=== PATIENT | male | born 1965 | race Caucasian/White ===

== ENCOUNTER 2019-11-09 14:38 | Observation (INO) | payer BC ==
[2019-11-09] MEDS ORDERED: SUBLIMAZE 100 MCG/2 ML IV ONE ×2 (14:58→16:03)
[2019-11-09] MEDS ORDERED: Zofran 4 MG/2 ML VIAL IV ONE (14:59)
[2019-11-09] MEDS ORDERED: Zofran 4 MG/2 ML VIAL ONE (15:00)
[2019-11-09] MEDS ORDERED: SUBLIMAZE 100 MCG/2 ML ONE ×2 (15:00→16:05)
--- NOTE | 2019-11-09 15:21 | ERPHSYRPT ---
- History of Present Illness Time Seen by Provider: 11/09/19 14:47 Source: patient Exam Limitations: no limitations Patient Subjective Stated Complaint: PT STATES HE FELL OFF WALK BOARD AT WORK LESS THAN 8 FEET HIGH, PAIN IN L FOOT, RIBS AND ARM, Triage Nursing Assessment: PT WHEELED BACK VIA WHEELCHAIR AND TX TO BED, A/O X3, STATES PAIN IN L FOOT, RIBS AND ARM, UNABLE TO PUT WEIGHT ON L FOOT, PEDAL PULSE STRONG, L ANKLE SWOLLEN Physician History: 54 yo wm fell off scaffolding 8ft in air before arrival injuring his L ankle/L thorax/L forearm. Pain is 9/10. He denies any symptoms before fall and also denies LOC/ARREGUIN/new C-T-L spine T. Occurred: just prior to arrival Reason for Fall: lost balance Injuries/Pain Location: upper extremity (L forearm), chest, lower extremity (L ankle) Loss of Consciousness: no loss of consciousness Quality: throbbing Severity of Pain-Max: severe Severity of Pain-Current: severe Modifying Factors: Improves With: movement Associated Symptoms (Fall): extremity injury, No abdominal pain, No back pain, No confusion, No chest pain, No dizziness, No headache, No lightheadedness, No muscle spasms, No nausea, No neck pain, No ringing in ears, No seizures, No s hortness of breath, No slurred speech, No trouble walking, No vomiting Allergies/Adverse Reactions: No Known Drug Allergies Allergy (Unverified 11/09/19 15:02) Home Medications: Atorvastatin Calcium [Lipitor] 10 mg PO DAILY 11/09/19 [History] Meloxicam 10 mg PO DAILY 11/09/19 [History] Immunizations Up to Date: Yes Travel Risk - International Travel Have you traveled outside of the country in past 3 weeks: No - Coronavirus Screening Are you exhibiting any of the following symptoms?: No Close contact with a COVID-19 positive Pt in past 14-21 Days: No - Review of Systems Constitutional: No Symptoms Eyes: No Symptoms Ears, Nose, & Throat: No Symptoms Respiratory: No Symptoms Cardiac: No Symptoms Abdominal/Gastrointestinal: No Symptoms Genitourinary Symptoms: No Symptoms Musculoskeletal: No Symptoms Skin: No Symptoms Neurological: No Symptoms Psychological: No Symptoms Endocrine: No Symptoms Hematologic/Lymphatic: No Symptoms Immunological/Allergic: No Symptoms - Past Medical History Pertinent Past Medical History: Yes Neurological History: No Pertinent History ENT History: No Pertinent History Cardiac History: No Pertinent History Endocrine Medical History: No Pertinent History Musculoskeletal History: Other GI Medical History: No Pertinent History History: No Pertinent History Psycho-Social History: No Pertinent History Male Reproductive Disorders: No Pertinent History Other Medical History: "BAD BACK" SPINAL STIMULATOR IN PLACE - Past Surgical History Past Surgical History: Yes Other Surgical History: CARPAL TUNNEL, SPINAL STIMULATOR - Social History Smoking Status: Never smoker Drug Use: none Patient Lives Alone: No - Nursing Vital Signs Nursing Vital Signs: Initial Vital Signs Pulse Rate 77 11/09/19 14:38 Respiratory Rate 18 11/09/19 14:38 Blood Pressure 126/89 11/09/19 14:38 O2 Sat by Pulse Oximetry 99 11/09/19 14:38 Pain Scale Pain Intensity 5 - [place] Coma Score Best Eye Response (Larisa): (4) open spontaneously Best Verbal Response (Larisa): (5) oriented Best Motor Response ([place]): (6) obeys commands Larisa Total: 15 - Physical Exam General Appearance: no apparent distress (In pain) Head Injury: no evidence of injury Eye Exam: PERRL/EOMI, eyes nml inspection ENT Exam: airway nml Neck Exam: supple, trachea midline, full range of motion, normal alignment, normal inspection (C-spine nttp) Respiratory/Chest Exam: normal breath sounds, No respiratory distress (L lateral thoracic ttp) Cardiovascular Exam: normal heart sounds, regular rate/rhythm, No murmur Gastrointestinal Exam: soft, normal bowel sounds, No tenderness Back Exam: normal inspection (No new T or L spine ttp) Extremity Exam: pain with movement (L ankle w marked edema and ttp/Good pedal pulse, distal senation, and capillary return) Peripheral Pulses: dorsalis-pedis (R): 2+, dorsalis-pedis (L): 2+ Neurologic Exam: alert, oriented x 3, cooperative, 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, normal mood/affect, sensation nml, No motor deficits, No sensory deficit Skin Exam: normal color, warm, dry SpO2 Interpretation: normal SpO2: 99 O2 Delivery: Room Air - Radiology Exams Forearm X-ray Interpretation: Discussed w/ radiologist (L forearm neg per Rad) Ankle X-ray Interpretation: Interpreted by me (L tri-malleolar fx) - CT Exams Chest CT Interpretation: Discussed w/radiologist (CT chest neg for acute injury) Ordered Tests: Active Orders 24 hr Category Date Time Status Bedrest ROUTINE Activity 11/09/19 18:14 Active Code Status Order ROUTINE Care 11/09/19 18:12 Active Cold Application STAT Care 11/09/19 19:01 Active IV Care Q6H Care 11/09/19 18:12 Active IV Insertion STAT Care 11/09/19 15:[address] in Observation ROUTINE Care 11/09/19 18:12 Active Vital Signs Q4H Care 11/09/19 18:12 Active NPO Diet 11/09/19 18:14 Active ANKLE (3 VIEWS) Stat Exams 11/09/19 15:56 Completed CHEST WITH CONTRAST [CT] Stat Exams 11/09/19 15:02 Completed FOREARM Stat Exams 11/09/19 15:57 Completed LOWER EXTREMITY WO CONTRAST [CT] Stat Exams 11/09/19 16:42 Completed CBC W DIFF AM.LAB Lab 11/10/19 04:00 Ordered CMP AM.LAB Lab 11/10/19 04:00 Ordered PROTIME WITH INR AM.LAB Lab 11/10/19 04:00 Ordered Transfer Order Routine Transfer 11/09/19 Ordered Medication Summary Generic Name Dose Route Start Last Admin Trade Name Freq PRN Reason Stop Dose Admin Hydromorphone HCl 1 mg 11/09/19 18:12 Dilaudid 2 Mg Injection IV 11/14/19 18:11 Q1H PRN PRN PAIN Sodium Chloride 1,000 mls @ 100 mls/hr 11/09/19 18:15 11/09/19 18:39 Sodium Chloride 0.9% 1000 Ml IV 12/09/19 18:14 100 mls/hr .Q10H TED Administration Ondansetron HCl 4 mg 11/09/19 18:12 Zofran 4 Mg/2 Ml Vial IV 12/09/19 18:11 Q6H PRN PRN NAUSEA/VOMITING Discontinued Medications Generic Name Dose Route Start Last Admin Trade Name Freq PRN Reason Stop Dose Admin Diphtheria/Tetanus/Acell Pertussis 0.5 ml 11/09/19 18:19 11/09/19 18:39 Adacel Vial IM 11/09/19 18:20 0.5 ml .ONCE ONE Administration Diphtheria/Tetanus/Acell Pertussis Confirm 11/09/19 18:34 Adacel Vial Administered 11/09/19 18:35 Dose 0.5 ml IM .STK-MED ONE Fentanyl Citrate 100 mcg 11/09/19 14:58 11/09/19 15:06 Sublimaze 100 Mcg/2 Ml IV 11/09/19 14:59 100 mcg STAT ONE Administration Fentanyl Citrate Confirm 11/09/19 15:00 Sublimaze 100 Mcg/2 Ml Administered 11/09/19 15:01 Dose 100 mcg .ROUTE .STK-MED ONE Fentanyl Citrate 100 mcg 11/09/19 16:03 11/09/19 16:13 Sublimaze 100 Mcg/2 Ml IV 11/09/19 16:04 100 mcg STAT ONE Administration Fentanyl Citrate Confirm 11/09/19 16:05 Sublimaze 100 Mcg/2 Ml Administered 11/09/19 16:06 Dose 100 mcg .ROUTE .STK-MED ONE Hydromorphone HCl 1 mg 11/09/19 16:41 11/09/19 16:43 Hydromorphone 1 Mg/Ml Ampule IV 11/09/19 16:42 1 mg STAT ONE Administration Hydromorphone HCl Confirm 11/09/19 16:42 Hydromorphone 1 Mg/Ml Ampule Administered 11/09/19 16:43 Dose 1 mg .ROUTE .STK-MED ONE Hydromorphone HCl Confirm 11/09/19 18:15 Hydromorphone 1 Mg/Ml Ampule Administered 11/09/19 18:16 Dose 1 mg .ROUTE .STK-MED ONE Hydromorphone HCl 1 mg 11/09/19 18:18 11/09/19 18:25 Hydromorphone 1 Mg/Ml Ampule IV 11/09/19 18:19 1 mg STAT ONE Administration Ondansetron HCl 4 mg 11/09/19 14:59 11/09/19 15:06 Zofran 4 Mg/2 Ml Vial IV 11/09/19 15:00 4 mg STAT ONE Administration Ondansetron HCl Confirm 11/09/19 15:00 Zofran 4 Mg/2 Ml Vial Administered 11/09/19 15:01 Dose 4 mg .ROUTE .STK-MED ONE - Progress Progress: improved Progress Note: 11/09/19 17:35 Pt given 100umg IV fentanylx2 w mod relief in pain. Given 1mg IV dilaudid w great relief in pain. Consulted Dr. Zacarias, who talked to pt and wanted CT of ankle. Pt had good pedal pulse throughout ER stay. 11/09/19 17:45 Dr. Zacarias to take pt to surgery. Pt states that pain is fine and refuses meds at this time. 11/09/19 18:21 Pt unable to go to surgery because instruments need to be sterilized. Pt admitted per Dr. Smith, and Dr. Zacarias to take to surgery in AM. Pt given 1mg IV dilaudid and LLE splinted per nursing w orthoglass. NVI. - Departure Departure Disposition: Observation Clinical Impression: Bimalleolar ankle fracture Condition: Stable Critical Care Time: No Referrals: ANAMARIA GARZA MD [Primary Care Provider] -
--- NOTE | 2019-11-09 16:21 | XRAY ---
Indication: Pain following fall. Comparison: None 2 view left forearm obtained. No bony, articular, or soft tissue abnormalities.
--- NOTE | 2019-11-09 16:23 | XRAY ---
Indication: Left-sided trauma following fall. Multiple contiguous axial images obtained through the chest using 80 cc Isovue 370 contrast. Comparison: None Lungs are inflated and clear. Heart is not enlarged. No pericardial effusion. Aorta is normal course and caliber. No pathologic mediastinal/hilar lymphadenopathy. Bony thorax intact with incidental epidural leads terminating T8 level. Limited upper abdomen is unremarkable. Impression: Negative CT chest with contrast exam.
--- NOTE | 2019-11-09 16:26 | XRAY ---
Indication: Pain following fall. Comparison: None 3 view left ankle demonstrates bimalleolar fracture with soft tissue swelling. Medial malleolus fracture is displaced and lateral malleolus fracture is nondisplaced and comminuted. Additional incomplete oblique fracture distal metadiaphysis tibia. Talus moderately subluxed laterally. No other bony, articular, or soft tissue abnormalities. Impression: Ankle fracture subluxation as detailed.
[2019-11-09] MEDS ORDERED: Hydromorphone 1 mg/ml Ampule IV ONE ×2 (16:41→18:18)
[2019-11-09] MEDS ORDERED: Hydromorphone 1 mg/ml Ampule ONE ×2 (16:42→18:15)
--- NOTE | 2019-11-09 17:10 | XRAY ---
Indication: Pain following fall. Multiple contiguous axial images obtained through the left ankle. Two-dimensional sagittal and coronal reformatted images obtained. Comparison: None There is bimalleolar fracture with medial malleolus fracture fragment mildly displaced and lateral malleolus fracture comminuted and with minimal valgus angulation. Lateral aspect of the distal tibia demonstrates minimally displaced vertical fracture extending to the tibial plafond and metadiaphysis. No other acute fracture or suspicious bony lesions. Talus is moderately subluxed laterally. Diffuse soft tissue swelling. Achilles tendon appears intact. Impression: Left ankle fracture with talus subluxation as detailed.
[2019-11-09] MEDS ORDERED: Zofran 4 MG/2 ML VIAL IV PRN (18:12)
[2019-11-09] MEDS ORDERED: Adacel Vial IM ONE ×2 (18:19→18:34)
[2019-11-09] MEDS: Sodium Chloride 0.9% 1000 ML 1,000 ML IV SCH (18:39)
[2019-11-09] MEDS: DILAUDID 2 MG INJECTION IV PRN (22:03)
[2019-11-10] MEDS: DILAUDID 2 MG INJECTION IV PRN ×2 (03:28→13:00)
[2019-11-10] MEDS: Sodium Chloride 0.9% 1000 ML 1,000 ML IV SCH (03:44)
[2019-11-10 04:58] LABS: Absolute Neutrophil Ct (ANC) 6.65 (1.4-6.9); BASOPHIL % 0.1 % (0.0-0.4); Basophil (Absolute #) 0.01 (0-0.4); Eosinophil % 1.3 % (0.00-5.0); Eosinophil (Absolute #) 0.14 (0-0.5); Hematocrit 37.7 % (42-50); Hemoglobin 12.4 gm/dl (12.5-18.0); Lymphocyte (Absolute #) 2.78 (1.0-4.6); Lymphocytes % 25.8 % (24.0-44.0); Mean Cell Volume 95.4 fl (78-100); Mean Corpuscular Hemoglobin 31.4 pg (26-32); Mean Corpuscular Hgb Concent. 32.9 g/dl (32-36); Mean Platelet Volume 10.1 fl (7.5-11.0); Monocyte (Absolute #) 1.21 (0.0-1.3); Monocytes % 11.2 % (0.0-12.0); Neutrophil % 61.6 % (36.0-66.0); Platelet Count 182 K/mm3 (150-450); Red Blood Count 3.95 M/mm3 (4.1-5.6); Red Cell Distribution Width 12.8 % (11.5-14.0); White Blood Count 10.8 K/mm3 (4.0-10.5)
[2019-11-10 05:25] LABS: ALBUMIN 3.7 g/dL (3.5-5.0); ALKALINE PHOSPHATASE 56 U/L (38-126); ANION GAP 8.7 MEQ/L (5-15); BLOOD UREA NITROGEN 19 mg/dL (9-20); CHLORIDE 100 mmol/L (98-107); Calcium 8.9 mg/dL (8.4-10.2); Carbon Dioxide 29 mmol/L (22-30); Creatinine 1 0.81 mg/dL (0.66-1.25); Glucose 108 mg/dL (74-106); Potassium 3.7 mmol/L (3.5-5.1); SGOT/AST 37 U/L (17-59); SGPT/ALT 44 U/L (0-50); SODIUM 135 mmol/L (137-145); Total Protein 6.2 g/dL (6.3-8.2)
[2019-11-10] MEDS ORDERED: SUBLIMAZE 250 MCG/5 ML ONE (06:28)
[2019-11-10] MEDS ORDERED: BRIDION 200MG/2ML IV ONE (06:28)
[2019-11-10] MEDS ORDERED: DIPRIVAN 200 MG/20 ML IV ONE (06:28)
[2019-11-10] MEDS ORDERED: Zofran 4 MG/2 ML VIAL ONE (06:28)
[2019-11-10] MEDS ORDERED: TORAdol 30 mg Injection ONE (06:28)
[2019-11-10] MEDS ORDERED: Xylocaine-Mpf 2% 5 Ml Vial ONE (06:28)
[2019-11-10] MEDS ORDERED: Decadron 4 MG INJ ONE ×2 (06:28→07:25)
[2019-11-10] MEDS ORDERED: Zemuron 100 MG/10 ML ONE (06:28)
[2019-11-10] MEDS ORDERED: XYLOCAINE 1% HCL 20 ML MDV ONE (07:12)
[2019-11-10] MEDS ORDERED: Sensorcaine 0.25% 10 ML ONE (07:12)
[2019-11-10] MEDS ORDERED: Lactated Ringers 1,000 ML IV ONE (07:13)
[2019-11-10] MEDS ORDERED: MARCAINE 0.5%-EPI 1:200,000 VL IJ ONE (07:25)
[2019-11-10] MEDS ORDERED: ROBINUL ONE (07:43)
[2019-11-10] MEDS ORDERED: Triple Antibiotic Ointment ONE (08:58)
--- NOTE | 2019-11-10 09:33 | XRAY ---
Indication: Left ankle external fixation. Intraoperative fluoroscopy was provided for 1.07 minute. 16 digital spot images submitted for interpretation demonstrates external orthopedic hardware fixating left ankle fracture. Correlate with intraoperative findings/report.
[2019-11-10 09:41] VITALS: PULSE 68
[2019-11-10] MEDS ORDERED: ENOXAPARIN SODIUM SQ ONE (10:53)
--- NOTE | 2019-11-10 12:44 | XRAY ---
1.07 minutes of fluoroscopy was used in surgery for a left ankle fixation.
[2019-11-10 13:36] VITALS: BP 123/78; O2SAT 98
--- NOTE | 2019-11-10 14:00 | CONS ---
DATE: 11/09/2019 1630 HISTORY OF PRESENT ILLNESS: The patient was seen in the emergency room. 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 He experienced immediate pain to his left foot, his ribs and his arm. He rates his pain as 9 out of 10. He denies any symptoms before his fall. He denied loss of consciousness. He states that this occurred at approximately 1330 hours. He denies any other trauma than other what was stated. HOME MEDICATIONS: He is on atorvastatin, calcium 10 mg p.o. daily, meloxicam 10 mg p.o. daily. ALLERGIES: NKDA. NO KNOWN ALLERGIES. REVIEW OF SYSTEMS: CONSTITUTIONAL: No symptoms. EYES: No symptoms. ENT: No symptoms. RESPIRATORY: No symptoms. CARDIAC: No symptoms. ABDOMINAL/GI: No symptoms. : No symptoms. MUSCULOSKELETAL: Symptoms - Pain and tenderness to the left ankle with palpation. SKIN: Skin is taught and shiny indicative of inflammation. NEUROLOGICAL: No symptoms. PSYCHOLOGICAL: No symptoms. ENDOCRINE: No symptoms. HEMATOLOGICAL/LYMPH: No symptoms. IMMUNOLOGICAL/ALLERGIC: No symptoms. PAST MEDICAL HISTORY: He has a bad back with a spinal stimulator in place. PAST SURGICAL HISTORY: Carpal tunnel and spinal stimulator. SOCIAL HISTORY: Never smoker. Never drug user. He lives alone. PHYSICAL EXAMINATION: VITAL SIGNS: Vital signs at the time of the encounter pulse rate 77, respiratory rate 18, blood pressure 126/89. O2 saturation by pulse oximetry 99%. He rates his pain at this time as 5. EXTREMITIES: Lower extremities indicating vascular palpable pulses to the dorsalis pedis and the posterior tibial bilaterally, capillary refill time to the hallux bilaterally is within normal limits. There is a significant amount of edema noted to the left ankle. NEUROLOGICAL: Light touch sensations are intact all nerve distributions including deeper peroneal, superficial peroneal, posterior tibial. MUSCULOSKELETAL: Tenderness to palpation of the left ankle, pain with range of motion. There is significant guarding which limits my exam. Wiggles toes. DERMATOLOGICAL: Skin is taught and shiny indicative of inflammation at the time of presentation. His compartments are soft and compressible. LAB DATA AND TESTS: Radiology showing a bimalleolar fracture with an anterior tibial pilon component that is approximately 15% of the tibial pilon. There is significant comminution of the fibula. IMPRESSION: Tibial pilon with bimalleolar fracture of the left lower extremity. Condition is stable. PLAN: At this time discussed with patient potential surgical intervention at the time of consultation, however delay with surgery due to instrumentation needing to be sterilized. Will require us to delay surgical intervention until tomorrow morning with application of an external fixator will be performed. The patient is to be admitted under observation status overnight for pain control. The emergency room physician splinted the lower extremity with an Ortho-Glass that was well padded. The patient was admitted to the floor.
--- NOTE | 2019-11-10 15:46 | OP ---
SURGERY DATE: 11/10/2019701 INDICATION FOR SURGERY: The patient presented to the emergency department yesterday with complaints of left ankle pain, rib pain and arm pain to which he was cleared of all other issues. The left lower extremity however suffered a pilon fracture with a bimalleolar component. The intra-articular component needed to be addressed and the patient elected and consented to surgical intervention. 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 The patient states that there was no loss of consciousness or any symptoms prior to his fall. The history and physical that was performed by Dr. Smith has not changed since yesterday. I spoke to the patient prior to the procedure this morning. His pain is in control and he understands what the procedure involves and is ready to proceed. PREOPERATIVE DIAGNOSIS: Pilon fracture left lower extremity. POSTOPERATIVE DIAGNOSIS: Pilon fracture left lower extremity. PROCEDURE: Application of external fixator to the left lower extremity. SURGEON: Urbano Schulz DPM. ROBOTICS SOFTWARE ENGINEER: None. ANESTHESIA: General with postoperative popliteal and saphenous block. HEMOSTASIS: None. ESTIMATED BLOOD LOSS: 10 cc. MATERIALS: ArthroFX External Fixator, one transcalcaneal pin, two tibial pins and a 4 mm forefoot pin as implants. INJECTABLES: None. DESCRIPTION OF PROCEDURE AND FINDINGS: Following adequate assessment by the anesthesia team, the patient was brought into the operating room and placed onto the operating table in supine position. The patient was administered adequate general anesthesia and the leg was then prepped and draped in a sterile technique. At this time, the draped lower extremity was placed onto the surgical field with a stack of blankets in order to elevate the left leg above the other. At this time, fluoroscopy was utilized to identify a vertical bisection of the long axis of the tibia. At this time, a 15 blade was utilized to make a small incision over the anterior tibial crest at a level above the site of the fracture in the mid tibia and a curved hemostat was utilized to get down to bone. At this time, the tibial half pin was placed perpendicular to long axis of the tibia in bicortical fashion. At this time, the Sitemasher System was then lined up and a second incision made in order to place a half pin parallel with the long axis of the tibia parallel with the other half pin, perpendicular to the long axis of the tibia. At this time, fluoroscopy was utilized and bicortical purchase confirmed however not so much as to violate the posterior compartment and neurovasculature. At this time, the Rancho Cube was secured and our attention was directed to the medial aspect of the left heel. At this time, a transcalcaneal pin was placed through the heel from medial to lateral at a location approximately 2 cm posterior and 2 cm plantar to the medial malleolus in order to avoid violating any neurovascular structures in this area. Once the transcalcaneal pin was apparent through the lateral side of the foot, a 15 blade was utilized to make an incision where the skin was tenting. The transcalcaneal pin was then placed through the calcaneus in an attempt to be as perpendicular to the vertical bisection of the tibia as possible. At this time, the foot was held in distraction as the Rancho Cubes and pin-to-bar clamp were placed and tightened in an adequate position where there was stable orthogonal alignment. The fibula was pulled out to length and there was a rectus position of the foot. The foot fell into a plantar flexed positon therefore the intraoperative decision to place a medial cuneiform pin in order to keep him out of equinus contracture was performed. At this time, a 4 mm cuneiform pin was then placed into the bone and half pins were utilized to hold the position of the frame. All of the nuts were secured and tightened. A postoperative dressing of Xeroform was wrapped around the pin sites along with tube gauze, Kerlix and for discharge GERMAN. At this time, the decision was made to use a 6 inch GERMAN around the frame. The patient handled the anesthesia and the procedure well. Postoperative orders as written and as follows: Lovenox 40 mg subcu daily for seven days and then 325 mg of aspirin until weight bearing status daily. Nonweight bearing to the left lower extremity, ambulation with a walker for transfers. Pain control Richey 7.5/325 mg p.o. every four hours or every six hours for breakthrough pain. Regular house diet. Physical therapy for evaluation and treatment of preoperative training with crutches, bedrest and the patient is to be discharged when cleared through the postoperative anesthesia care unit.
== END 2019-11-10 14:50 | disposition home or self-care (01) ==
LOC: ED 14:38 → MED SURG 19:51
PROVIDERS: ADMIT General Practice; ATTEND General Practice
DX: S82.872A Displaced pilon fracture of left tibia, initial encounter for closed fracture (principal); R07.81 Pleurodynia; M79.602 Pain in left arm; W17.89XA Other fall from one level to another, initial encounter; Y93.H3 Activity, building and construction; Y99.0 Civilian activity done for income or pay; Z96.82 Presence of neurostimulator; Z79.899 Other long term (current) drug therapy
CPT/HCPCS: 20690; 36000; 36415; 71260; 73090; 73600; 73610; 73700; 76000; 76937; 80053; 85025; 90471; 96374; 96375; 96376; 97161; 99285; G0378; 64447; 64450; 90715; 99242; J1100; J1170; J1650; J1885; J2405; J2704; J3010; A9270-GY

== ENCOUNTER 2019-11-19 06:40 | Day surgery (SDC) | payer BC, OTHER ==
[2019-11-19] MEDS ORDERED: Lactated Ringers 1,000 ML IV ONE ×2 (07:17→15:05)
[2019-11-19] MEDS ORDERED: Lactated Ringers 1,000 ML IV SCH (07:30)
[2019-11-19] MEDS ORDERED: CEFAZOLIN 2 GM-D5W BAG** 2 GM/50 ML ML IV ONE (07:52)
[2019-11-19] MEDS ORDERED: CEFAZOLIN 2 GM-D5W BAG** 2 GM/50 ML ML IV SCH (08:00)
[2019-11-19] MEDS ORDERED: XYLOCAINE 1% HCL 20 ML MDV ONE (08:01)
[2019-11-19] MEDS ORDERED: Sensorcaine 0.25% 10 ML ONE (08:01)
[2019-11-19] MEDS ORDERED: TORAdol 30 mg Injection ONE (08:29)
[2019-11-19] MEDS ORDERED: DIPRIVAN 200 MG/20 ML IV ONE (08:29)
[2019-11-19] MEDS ORDERED: BRIDION 200MG/2ML IV ONE (08:29)
[2019-11-19] MEDS ORDERED: SUBLIMAZE 250 MCG/5 ML ONE (08:29)
[2019-11-19] MEDS ORDERED: Zemuron 100 MG/10 ML ONE ×2 (08:29→10:06)
[2019-11-19] MEDS ORDERED: Zofran 4 MG/2 ML VIAL ONE (08:29)
[2019-11-19] MEDS ORDERED: Decadron 4 MG INJ ONE ×2 (08:29→11:36)
[2019-11-19] MEDS ORDERED: Xylocaine-Mpf 2% 5 Ml Vial ONE (08:29)
[2019-11-19] MEDS ORDERED: MARCAINE 0.5%-EPI 1:200,000 VL IJ ONE (11:31)
[2019-11-19] MEDS ORDERED: XYLOCAINE 2%/Epi 1:200000 20ML VIAL MPF ONE (11:33)
[2019-11-19] MEDS ORDERED: SUBLIMAZE 100 MCG/2 ML ONE ×2 (12:38→13:12)
[2019-11-19] MEDS ORDERED: DILAUDID 2 MG INJECTION ONE (12:39)
[2019-11-19] MEDS ORDERED: Naropin 0.5% 30 ML VIAL ONE (13:31)
[2019-11-19 14:07] LABS: Appearance CLEAR (CLEAR); Bilirubin NEGATIVE (NEGATIVE); Blood NEGATIVE Ery/ul (0-5); Glucose NEGATIVE (NEGATIVE); Ketones NEGATIVE (NEGATIVE); Leukocyte Esterase NEGATIVE (NEGATIVE); Mucus SLIGHT /HPF (NEGATIVE); Nitrite NEGATIVE (NEGATIVE); Protein,Urine Dip NEGATIVE (Negative); Specific Gravity 1.014 (1.005-1.025); Urobilinogen NEGATIVE mg/dL (0-1)
[2019-11-19 14:15] LABS: Bacteria NONE SEEN /HPF (NEGATIVE)
[2019-11-19 15:19] VITALS: O2SAT 97
[2019-11-19 16:09] VITALS: BP 133/67; PULSE 96
--- NOTE | 2019-11-22 09:28 | XRAY ---
4 minutes and 22 seconds fluoroscopy time in surgery for open reduction of left ankle fracture.
--- NOTE | 2019-11-23 09:44 | OP ---
SURGERY DATE: 11/19/2019 0842 INDICATION FOR SURGERY: The patient was seen on Saturday, November 09, 2019 where he suffered a pilon fracture of the left ankle and was seen in the emergency department. At that time decision for spanning external fixator was determined and surgically placed the next morning in order to bring out the intra-articular fracture into alignment as well as prevent soft tissue contractures allowing for reduction of the fibula. The date prior to the current encounter, he was assessed and the soft tissue quality was deemed to be adequate to go forward with definitive fixation of the left pilon fracture. The patient understands all of the risks, complications and benefits of the surgical intervention and had indicated verbally and in written consent. No guarantees were made to the outcome of this surgery or intervention. It was with that we decided to proceed. PREOPERATIVE DIAGNOSIS: Left pilon fracture. POSTOPERATIVE DIAGNOSIS: Left pilon fracture. PROCEDURE: Open reduction internal fixation of tibia and fibula of left ankle. SURGEON: Urbano Schulz DPM. CONE TRUCKER: None. ANESTHESIA: General. ANTIBIOTICS: 2 gm Ancef intraoperatively. HEMOSTASIS: Esmarch plus tourniquet set to 250 mm of Mercury for approximately 120 minutes. ESTIMATED BLOOD LOSS: 40 cc. MATERIALS: Anterior buttress plate Arthrex Hook Plate and cannulated partially threaded screws and cortical and cancellous screws locking and nonlocking in combination, 2-0 Vicryl and skin chris. INJECTABLES: Postoperative injection performed by anesthesia in the form of popliteal block. PATHOLOGY: None. MICROBIOLOGY: None. COMPLICATIONS: None. DESCRIPTION OF PROCEDURE AND FINDINGS: Following satisfactory preoperative evaluation, the patient was brought into the operating room and placed on the operating room table in the supine position. General anesthesia was administered by the anesthesia team and following sedation the leg was shaved, prepped and draped in the typical sterile fashion. At this time fluoroscopy was utilized to visualize the fracture site at the fibula for planning for incision. An Esmarch was utilized and the tourniquet was inflated to 250 mm Hg. At this time, an incision was placed over the lateral aspect slightly posterior to the central bisection of the fibula in order to access the fracture site. Careful attention was made to avoid any neurovascular structures in particular the superficial peroneal nerve which was encountered approximately 7 cm from the distal tip of the fibula was protected throughout the encounter. At this time, dissection was carried to the bone where a severely comminuted fibular fracture was encountered. At this time, K-wires were utilized in order to distract the fibula out to length. However, the comminution of the fibular fracture made this encounter difficult. Intraoperative decision to utilize a hook plate to cradle the comminuted pieces at the distal extent of the fibular fracture as well as buttress at the proximal extent of the fracture was determined to be the most appropriate method of fixation. At this time, a push-pull technique was utilized with the distal locking screws in place and a screw placed outside of the plate fixation in order to distract. This once again failed to regain the length of the fibula due to the lack of purchase into the bone at the distal extent of the fibula fracture. At this point intraoperative decision was made to utilize the hook plate as a buttress and the proximal nonlocking screws were placed bicortically which gave for a more anatomical reduction despite the fibular length being slightly shorter than the contralateral leg as determined by fluoroscopic assessment. At this time, an attempt was made to secure the posterior fragments. However, we encountered the same issue of inability to fixate the distal fragments due to the amount of comminution. This area was flushed with copious amounts of sterile saline and attention was then drawn to the anterior of the tibia where an anterior medial incision was placed just lateral to the tibial crest extending down to the ankle joint and curving just below the medial malleolus. Incision was also made in respect to protecting any neurovascular structures including the saphenous vein and nerve which were encountered at the distal extent of this incision. The extensor retinaculum was then encountered which was incised in order to visualize the tendon sheath of the tibialis anterior and the extensor digitorum longus. At this time, the tibialis anterior tendon sheath was encountered and was left intact. Bisection through the tendon sheath of the extensor digitorum longus was made in order to protect from any wound complications or dehiscence. At this time, a Moeller elevator was utilized to elevate the neurovascular bundle extensor digitorum longus and the extensor hallucis longus to the lateral aspect of the incision site where the tibialis anterior was retracted medially as well as the saphenous nerve and vein which were retracted medially as well encountering the anterior fragment of the pilon fracture. At this point, the fragment was hinged open in order to assess the articular cartilage which was primarily intact except for a punched piece which was missing from the distal extent of the fracture site when the Chaput fracture was lined up. An intraoperative decision was made to utilize flowable bone graft in order to fill the deficit that was encountered. The bone graft was placed within the tibia and also the posterior aspect of the fibula at this time and assessed to be adequate and a total of 2.5 cc were utilized. At this point, the Chaput fracture was reduced utilizing two K-wires one superior and inferior until the fragment was keyed into its appropriate fracture site. At this point, an 11 hole anterior tibial plate was deemed to be the most adequate for reducing the fracture fragments and was secured. At this time, a nonlocking screw was placed into the plate initially in order to get apposition of the plate to the bony surface in the oblong hole. Once there was adequate apposition, the two nonlocking screws at the most distal extent of the plate were placed bicortically in lag-type fashion in order to gain some compression at the distal tibial fracture site. Two locking screws were utilized at the proximal extent of the tibial plate and two locking screws were placed at the second to last distal extent of the locking plate in order to secure the plate to the bone despite the comminuted articular surface. At this time, intraoperative fluoroscopy was utilized to assess the joint congruency which was deemed to be adequate on lateral and on AP as well as mortise views of the ankle joint. Attention was then directed to the medial malleolus fragment where two - 1.6 mm K-wires were drilled into the medial malleolar fragment for stability and in order to assess it under fluoroscopic examination. At this time once the fragment was deemed to be adequate using the medial talar shoulder as a cuong and the lack of any radiolucency seen on fluoroscopy, the position of the K-wires were deemed to be adequate and a partially threaded cannulated long pitch thread screw approximately 50 mm in length was placed proximally and distally in conversion-type attitude to prevent any rotation and for a more secure fixation of the medial malleolar fragment. At this time, final fluoroscopic images were taken and the incision sites were irrigated with copious amounts of sterile saline and vancomycin powder was added to the incision sites for prevention of infection. The tourniquet was dropped. Total tourniquet time was 129 minutes at 250 mm Mg. At this time, 2-0 Vicryl was utilized to secure the tendon sheath of the extensor digitorum longus and the superior extensor retinaculum in order to prevent any bowstringing or wound dehiscence. The skin was coapted utilizing 2-0 Vicryl on an SH needle in order to regain apposition of the skin edges under minimal tension to the anterior medial incision and the fibular incision. Skin chris were utilized at approximately every 3 mm in order to chirag the skin edges as well as prevent for any skin dehiscence-type issues. The incision sites were painted with Betadine and covered with Adaptic. The pin hole sites from the external fixator were curetted and lavaged with saline and Betadine and covered with Adaptic. At this time, 4x4's were used in order to cover the incision sites and dressing consisting of two Kerlix, a 4 inch and 6 inch GERMAN cast padding, a posterior splint and an additional 4 inch and 6 inch GERMAN were used to gain compression while stabilizing the lower extremity. The patient handled the anesthesia and procedure well. Following the procedure his vital signs were stable and vascular status was intact. He was returned to the postoperative anesthesia care unit following postoperative popliteal block that was performed by the anesthesia team. Orders for the following were as written: 1) Nonweight bearing to the left lower extremity. 2) Rest, ice, elevate left ankle. 3) Keep dressings clean, dry and intact. 4) Prescription for hydrocodone/acetaminophen 7.5/325 mg #30 p.o. q.4h/q.6h for breakthrough pain. 5) Discharge per anesthesia recommendations once pain is controlled. The patient is to follow up in office in one week's time for new x-rays. At that time assessment will be made for following postoperative protocol.
== END 2019-11-19 15:40 | disposition home or self-care (01) ==
LOC: SDC 06:40
PROVIDERS: ATTEND Podiatrist Foot & Ankle Surgery
DX: S82.872 Displaced pilon fracture of left tibia (principal); S82.842G Displaced bimalleolar fracture of left lower leg, subsequent encounter for closed fracture with delayed healing; Z79.899 Other long term (current) drug therapy
CPT/HCPCS: 20694; 27827; 27828; 29515; 64450; 73600; 76000; 76937; 76942; 81001; 87086; J0690; J1100; J1170; J1885; J2405; J2704; J2795; J3010

== ENCOUNTER 2020-04-14 08:21 | Day surgery (SDC) | payer BC, OTHER ==
[~2020-04-14 08:21] MED LIST: BUPIVACAINE 0.5% VIAL IJ ONE; Lactated Ringers 1,000 ML IV ONE; XYLOCAINE 1% HCL 20 ML MDV ONE
[2020-04-14] MEDS ORDERED: Lactated Ringers 1,000 ML IV SCH (08:30)
[2020-04-14] MEDS ORDERED: CEFAZOLIN 2 GM-D5W BAG** 2 GM/50 ML ML IV SCH (08:30)
[2020-04-14] MEDS ORDERED: SUBLIMAZE 100 MCG/2 ML ONE ×2 (10:51→14:38)
[2020-04-14] MEDS ORDERED: DIPRIVAN 200 MG/20 ML IV ONE (10:51)
[2020-04-14] MEDS ORDERED: Xylocaine-Mpf 2% 5 Ml Vial ONE (10:51)
[2020-04-14] MEDS ORDERED: Decadron 4 MG INJ ONE ×2 (10:51→11:51)
[2020-04-14] MEDS ORDERED: Zofran 4 MG/2 ML VIAL ONE (10:51)
[2020-04-14] MEDS ORDERED: Versed 2 MG/2 ML Injection ONE (10:52)
[2020-04-14] MEDS ORDERED: Naropin 0.5% 30 ML VIAL ONE (11:51)
[2020-04-14] MEDS ORDERED: EPINEPHRINE 1MG/ML AMP ONE (11:51)
[2020-04-14] MEDS ORDERED: Ephedrine Sulfate 50 MG/ML ONE (12:17)
[2020-04-14] MEDS ORDERED: Lactated Ringers 1,000 ML IV ONE (12:49)
--- NOTE | 2020-04-14 14:15 | XRAY ---
Indication: Arthrotomy. Hardware removal. Intraoperative fluoroscopy provided for 1 minute 47 seconds. 5 digital spot images demonstrates removal of lateral malleolus fixation plate/screws. Stable intact medial malleolus fixation plate/screws. Correlate with intraoperative findings/report.
[2020-04-14 15:50] VITALS: O2SAT 98
[2020-04-14 16:08] VITALS: BP 135/94; PULSE 87
--- NOTE | 2020-04-14 16:39 | XRAY ---
1 minute and 47 seconds fluoroscopy time in surgery for hardware removal of left foot.
--- NOTE | 2020-04-17 13:53 | OP ---
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 He fell from the scaffolding suffering a pilon fracture for which I saw him in November. He since progressed without significant complication and has been weight bearing in the recent months. However, he has noticed some pain to the lateral aspect of his right ankle. When examined he was shown to have signs of subluxing peroneal and a weakened superior peroneal retinaculum. The patient also had some complaints of restricted range of motion which he feels is a bone block. There is an argument that could be made that indicates there may be some restriction of the ankle joint range of motion with dorsiflexion so an arthrotomy was planned in this case. In order to perform the superior peroneal retinaculum repair, the patient understood that there would have to be a hardware removal of the curved plate at the lateral aspect of the fibula to which he understands. At this point the hardware is not necessary secondary to the adequate bone healing that he has experienced. The patient understands all risks, benefits and complications of the procedure including but not limited to possible failure of the procedure as well as need for surgical intervention in the future in order to correct any further complication. In addition, the patient understands that his injury is complex in nature and outcomes are typically not ideal as far as return to preoperative function. Knowing all of this the patient understands and would still like to progress with surgical intervention at this time. PREOPERATIVE DIAGNOSES: 1) Bone block at left anterior ankle. 2) Subluxing peroneals. 3) Pain to left lower extremity. 4) Status post pilon fracture. 5) Painful retained hardware. POSTOPERATIVE DIAGNOSES: 1) Bone block at left anterior ankle. 2) Subluxing peroneals. 3) Pain to left lower extremity. 4) Status post pilon fracture. PROCEDURES: 1) Repair of superior peroneal retinaculum. 2) Arthrotomy of left anterior tibia with excision of anterior osteophyte/heterotopic ossification. 3) Removal of hardware left ankle. SURGEON: Urbano Schulz DPM. SALES AND MARKETING DIRECTOR: None. ANESTHESIA: General. ANTIBIOTIC: Preoperative - 1 gm Ancef. HEMOSTASIS: Thigh tourniquet set to 350 mm of Mercury for 107 minutes. ESTIMATED BLOOD LOSS: Less than 10 cc. MATERIALS: 2-0 Vicryl and 2-0 Nylon. INJECTABLES: A postoperative popliteal and saphenous block was performed by the anesthesia team. FINDINGS: Adequate reduction of peroneals within the peroneal groove following repair of the superior peroneal retinaculum utilizing an internal brace. PATHOLOGY: None. COMPLICATIONS: None. DESCRIPTION OF PROCEDURE AND FINDINGS: Following satisfactory preoperative evaluation by the anesthesia team, the patient was brought into the OR and placed on the OR table in supine position. General anesthesia was then administered by the anesthesia team. Following sedation a well-padded thigh tourniquet was placed around the patient's left thigh. The left foot and ankle were then draped in the typical sterile fashion and Esmarch was then utilized to exsanguinate the right lower extremity and a tourniquet was inflated to 350 mm of Mercury. Attention was then directed to the medial aspect of the right ankle where an incision was made just medial to the tibialis anterior tendon. At this time careful blunt and sharp dissection was utilized in order to prevent any injury to any neurovascular structures and protect all tendons along the way to the joint surface. Once the joint surface was encountered, [facility] retractor was utilized to retract the anterior aspect of the neurovascular bundle as well as the tendons in total with light retraction in order to prevent any injury to these neurovascular bundles was performed. Clear visualization across the entire anterior aspect of the tibia demonstrated a relatively smooth surface. There was a small osteophyte at the anterior lateral aspect of the ankle which was excised utilizing osteotome and mallet. This fragment was removed and fluffed. Direct visualization of the remaining joint surface appeared to be within normal limits and for the nature of the injury actually appeared to be better than expected. At this time the patient was run through a range of motion in order to assess if there was an improvement in the dorsiflexory range of motion. There was indeed a significant improvement approximately 10 degrees past neutral which is more than adequate for appropriate ambulation and approximately 10 degrees more than the patient was getting before. At this time our attention was directed to the lateral aspect of the angle. Incision was made at the lateral aspect over the fibula in order to begin the removal of the hardware section of the procedure. At this time the plate was identified distally and was identified proximally. The screws were removed from the distal aspect and then the proximal aspect. A total of six screws and one plate were removed. Following this the superior peroneal retinaculum was then identified and laxity was demonstrated with the retinaculum this was excised and a periosteal cuff was left on the end of the posterior aspect of the fibula, this was tagged and inspection of the peroneal tendons as well as the peroneal groove demonstrated that there was no significant pathology to the posterior aspect of the fibula with a very smooth, gliding surface and there was no damage to the peroneal tendons at this time. They appeared healthy without any laceration, discoloration or diseased appearance. At this time the decision was made to simply repair the superior peroneal retinaculum. This was performed utilizing two fiber tacks which were anchored into the bone and an internal brace which was cinched over the top of the superior peroneal retinaculum and anchored in the orientation of the superior peroneal retinaculum into the calcaneus the lateral wall of the calcaneus. Following the procedure this was all performed while the foot was in a dorsiflexed and slightly everted position. The superior peroneal retinaculum showed very little laxity just enough to fit a freer underneath to prevent binding of the peroneal tendon and the internal brace was not too snug over the top of the superior peroneal retinaculum at this time. Following adequate reduction, copious amounts of sterile saline were utilized to flush both incision sites and 2-0 Vicryl was utilized to coapt the surgical incision site which then the skin closure was performed utilizing skin chris to the medial and lateral aspect of the extremity. Dressing consisting of Betadine soaked Adaptic to medial incision and Betadine soaked Adaptic to the incision sites, 4x4 gauze and Kerlix were applied followed by compressive Webril dressing and a posterior splint with sugar tong secured with two GERMAN wraps were applied to the patient's left lower extremity. The patient tolerated the procedure and anesthesia well and was transported to the postoperative anesthesia care unit with vital signs stable and vascular status intact. The patient was then sent home with the following orders: 1) Non-weight bearing to the left lower extremity. 2) Keep dressings clean, dry and intact. 3) Rest, ice and elevation of the left lower extremity. 4) Prescriptions written for pain control, deep venous thrombosis prophylaxis as well as infection prophylaxis. 5) Patient to discharged per anesthesia.
== END 2020-04-14 16:25 | disposition home or self-care (01) ==
LOC: SDC 08:21
PROVIDERS: ATTEND Podiatrist Foot & Ankle Surgery
DX: S86.391D Other injury of muscle(s) and tendon(s) of peroneal muscle group at lower leg level, right leg, subsequent encounter (principal); M25.772 Osteophyte, left ankle; T84.84XD Pain due to internal orthopedic prosthetic devices, implants and grafts, subsequent encounter
CPT/HCPCS: 20680; 27675; 28120; 64450; 64486; 73600; 76000; 76937; 76942; J0171; J0690; J1100; J2250; J2405; J2704; J2795; J3010